=== PATIENT | female | born 1955 | race Caucasian/White ===

== ENCOUNTER 2016-11-14 12:22 | Emergency (ER) | payer BC ==
[2016-11-14] MEDS ORDERED: Ondansetron 4 MG Tab.DIS ONE (12:51)
[2016-11-14 13:15] VITALS: BP 165/85
[2016-11-14] MEDS ORDERED: Ondansetron 4 MG Tab.DIS PO PRN (13:20)
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
--- NOTE | 2016-11-14 17:11 | CT ---
DATE OF SERVICE: 11/14/16 CLINICAL DATA: R/O subdural hematoma UNENHANCED BRAIN CT: Multislice acquisition through the brain without IV contrast was performed. No priors. No masses or mass effect. No intracranial hemorrhage. No evidence of acute or subacute infarct. There are basal ganglia calcifications bilaterally. The most common etiology for these is idiopathic. No osseous abnormalities. IMPRESSION: No acute intracranial abnormalities. [id number] [facility]
== END 2016-11-14 13:39 | disposition home or self-care (01) ==
LOC: LB.ED 12:22
DX: G44.309 Post-traumatic headache, unspecified, not intractable (principal); M19.90 Unspecified osteoarthritis, unspecified site; E11.9 Type 2 diabetes mellitus without complications; E78.00 Pure hypercholesterolemia, unspecified; Z88.0 Allergy status to penicillin; Z88.8 Allergy status to other drugs, medicaments and biological substances; Z79.82 Long term (current) use of aspirin; Z79.84 Long term (current) use of oral hypoglycemic drugs; Z87.891 Personal history of nicotine dependence
CPT/HCPCS: 70450; 82962; 99284-25

== ENCOUNTER 2017-04-15 10:12 | Emergency (ER) | payer BC ==
[2017-04-15 10:38] VITALS: BP 144/65
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
[2017-04-15] MEDS ORDERED: Methocarbamol 750 MG Tab ONE (11:07)
[2017-04-15] MEDS: Methocarbamol 500 MG Tab PO PRN (11:07)
--- NOTE | 2017-04-15 19:14 | CR ---
DATE OF SERVICE: 04/15/17 CLINICAL DATA: neck pain at work CERVICAL SPINE: No priors. Only C1 through C5 are adequately seen. The vertebral bodies visualized are of average height and in good alignment. There is straightening of the normal cervical lordosis. This is most likely positional or due to muscle spasm. There are disc margin spurs with disc space narrowing at the C4-5 and C5-6 levels. There is facet joint hypertrophy throughout the visualized levels. No acute abnormalities. No focal lytic or blastic bone lesions. [id number] [facility]
== END 2017-04-15 11:57 | disposition home or self-care (01) ==
LOC: LB.ED 10:12
DX: M62.838 Other muscle spasm (principal); E78.00 Pure hypercholesterolemia, unspecified; E11.9 Type 2 diabetes mellitus without complications; Z87.891 Personal history of nicotine dependence; Z79.899 Other long term (current) drug therapy; Z79.82 Long term (current) use of aspirin; Z79.84 Long term (current) use of oral hypoglycemic drugs; Z88.0 Allergy status to penicillin; Z88.5 Allergy status to narcotic agent
CPT/HCPCS: 72040; 99283; A0425; A0429; A9270-GY

== ENCOUNTER 2018-04-25 09:51 | Emergency (ER) | payer MEDICAID ==
--- NOTE | 2018-04-25 11:42 | EDM.PDOC ---
ED HPI GENERAL MEDICAL PROBLEM - General Chief Complaint: General Stated Complaint: POSSIBLE STREP Time Seen by Provider: 04/25/18 10:50 Source of Information: Reports: Patient History Limitations: Reports: No Limitations - History of Present Illness INITIAL COMMENTS - FREE TEXT/NARRATIVE: According to patient she woke up today morning and noticed pain some pain in her throat. Claims that since then it hurts for her to swallow fluids or solid food. No fever or chills. No nasal congestion or cold symptoms.No cough, wheezing or shortness of breath. She claims otherwise she feels fine. Onset: Today Onset Date: 04/25/18 Onset Time: 07:00 Duration: Intermittent Location: Reports: Other (throat) Quality: Reports: Ache Severity: Mild Improves with: Reports: None Worsens with: Reports: None Associated Symptoms: Denies: Confusion, Chest Pain, Cough, Diaphoresis, Fever/ Chills, Headaches, Rash, Seizure, Shortness of Breath, Syncope, Weakness - Related Data Allergies Allergy/AdvReac Type Severity Reaction Status Date / Time meperidine HCl [From Demerol] Allergy Confusion Verified 10/11/17 11:11 Penicillins Allergy Cannot Verified 10/11/17 11:11 Remember Home Meds: Home Meds Albuterol [Ventolin HFA] 1 puff INH Q4H PRN 05/29/13 [History] Aspirin [Adult Low Dose Aspirin EC] 81 mg PO DAILY 05/29/13 [History] Ibuprofen 800 mg PO BID PRN 05/29/13 [History] Simvastatin 20 mg PO DAILY 05/29/13 [History] metFORMIN [metFORMIN XR] 500 mg PO BIDM 05/29/13 [History] Montelukast [Singulair] 10 mg PO DAILY 07/26/15 [History] Methocarbamol 750 mg PO TID 10 Days #30 tablet 04/15/17 [Rx] Prednisone [IJD: predniSONE] 20 mg PO WITHBREAKFAST #21 tab 04/15/17 [Rx] Past Medical History 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 Denies: Ear Pain, Rhinitis, Throat Swelling, Vision Change Respiratory: Denies: Shortness of Breath, Pleuritic Chest Pain, Cough, Sputum 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: Denies: Chest Pain, Lightheadedness GI/Abdominal: Denies: Abdominal Pain, Nausea : Denies: Dysuria, Frequency Musculoskeletal: Denies: Joint Pain, Joint Swelling Skin: Denies: Bruising, Pruritis, Rash ED EXAM, GENERAL - Physical Exam Exam: See Below Exam Limited By: No Limitations General Appearance: Alert, WD/WN, No Apparent Distress Eye Exam: Bilateral Eye: EOMI, PERRL Ears: Normal External Exam, Normal Canal, Hearing Grossly Normal, Normal TMs Ear Exam: Bilateral Ear: Auricle Normal, Canal Normal, TM normal Nose: Normal Inspection, Normal Mucosa, No Blood Throat/Mouth: Normal Inspection, Normal Lips, Normal Teeth, Normal Gums, Normal Oropharynx, Normal Voice, No Airway Compromise Head: Atraumatic, Normocephalic Neck: Normal Inspection, Supple, Non-Tender, Full Range of Motion Respiratory/Chest: No Respiratory Distress, Lungs Clear, Normal Breath Sounds, No Accessory Muscle Use, Chest Non-Tender 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: Normal Peripheral Pulses, Regular Rate, Rhythm, No Edema, No Gallop, No JVD, No Murmur, No Rub Neurological: Alert, Oriented Skin Exam: Warm, Intact Course - Vital Signs Last Recorded V/S: Pt's vitals and clinical exam appears normal. I do not see any congestion of the posterior pharynx. CBC appears normal. Her strep test is negative.Pt reassured the she probably has early viral pharyngitis. Advised salt water gargles 2-3 times daily, motrin 600mg 3 times daily with food. rest and hydration. If symptoms worsen should followup in clinic next week. - Orders/Labs/Meds Labs: Laboratory Tests 04/25/18 Range/Units 10:30 WBC 8.0 D (4.0-11.0) K/uL RBC 4.33 (3.80-5.80) M/uL Hgb 12.5 (11.5-16.5) g/dL Hct 37.4 (37.0-47.0) % MCV 86 (76-96) fL MCH 28.9 (27.0-32.0) pg MCHC 33.4 (31.0-35.0) g/dL RDW 12.6 (11.0-16.0) % Plt Count 165 (150-500) K/uL MPV 10.7 H (6.0-10.0) fL Neut % (Auto) 62.0 (45.0-70.0) % Lymph % (Auto) 16.7 L (20.0-40.0) % Eddy % (Auto) 19.9 H (3.0-10.0) % Eos % (Auto) 1.0 (1.0-5.0) % Baso % (Auto) 0.4 (0.0-0.5) % Neut # (Auto) 4.97 (2.00-7.50) K/uL Lymph # (Auto) 1.34 L (1.50-4.00) K/uL Eddy # (Auto) 1.59 H (0.20-0.80) K/uL Eos # (Auto) 0.08 (0.04-0.40) K/uL Baso # (Auto) 0.03 (0.02-0.10) K/uL Departure - Departure Time of Disposition: 11:20 Disposition: Home, Self-Care 01 Condition: Fair Clinical Impression: Viral pharyngitis - Discharge Information *PRESCRIPTION DRUG MONITORING PROGRAM REVIEWED*: Not Applicable *COPY OF PRESCRIPTION DRUG MONITORING REPORT IN PATIENT EMERSON: Not Applicable Instructions: Pharyngitis, [id number] Referrals: PCP,None [Primary Care Provider] - Forms: ED Department Discharge Care Plan Goals: Drink plenty of fluids, get plenty of rest, may take tylenlol as needed for fever or pain. May gargle with warm salt water. Return to hospital or clinic if symptoms worsen. - Problem List & Annotations (1) Viral pharyngitis SNOMED Code(s): 1551952 Code(s): J02.9 - ACUTE PHARYNGITIS, UNSPECIFIED Status: Acute Current Visit: Yes
[2018-04-25 12:09] VITALS: BP 155/82
== END 2018-04-25 11:20 | disposition home or self-care (01) ==
LOC: LB.ED 09:51
DX: J02.9 Acute pharyngitis, unspecified (principal); E11.9 Type 2 diabetes mellitus without complications; Z88.0 Allergy status to penicillin; Z88.8 Allergy status to other drugs, medicaments and biological substances
CPT/HCPCS: 36415; 85025; 87430; 99283

== ENCOUNTER 2018-08-04 09:04 | Emergency (ER) | payer MEDICAID, MEDICARE ==
[2018-08-04] MEDS ORDERED: Aspirin 81 MG Tab.Chew ONE (09:15)
[2018-08-04] MEDS ORDERED: Ketorolac 30 MG/ML SDV ONE (09:58)
--- NOTE | 2018-08-04 10:02 | CR ---
DATE OF SERVICE: 08/04/18 CLINICAL DATA: chest pressure AP PORTABLE CHEST: Comparison is made to a prior exam dated 05/19/16. The film is underpenetrated. The patient has taken a poor inspiration. The heart size is normal. The lungs are clear. No pneumothorax. No pleural effusions. No evidence of acute intrathoracic disease. [id number] [facility]
[2018-08-04] MEDS ORDERED: Ketorolac 30 MG/ML SDV IVPUSH ONE (10:04)
--- NOTE | 2018-08-04 10:15 | EDM.PDOC ---
ED HPI GENERAL MEDICAL PROBLEM - General Chief Complaint: General Stated Complaint: CHEST PAIN Time Seen by Provider: 08/04/18 09:09 Source of Information: Reports: Patient History Limitations: Reports: No Limitations - History of Present Illness INITIAL COMMENTS - FREE TEXT/NARRATIVE: This is a 63yo F here for 3-5 days of chest pressure and pain. Patient states it radiates to her left arm sometimes. She denies any shortness of breath but does notice increased pain at times with deep breaths. She denies lightheadedness or fever. She has a good appetite and drinking well. No issues with urination or BMs. Duration: Day(s): Location: Reports: Chest Quality: Reports: Ache Severity: Moderate Improves with: Reports: None Worsens with: Reports: Movement Left Chest Pain Score (Numeric/FACES): 6 - Related Data Allergies Allergy/AdvReac Type Severity Reaction Status Date / Time meperidine HCl [From Demerol] Allergy Confusion Verified 10/11/17 11:11 Penicillins Allergy Cannot Verified 10/11/17 11:11 Remember Home Meds: Home Meds Albuterol [Ventolin HFA] 1 puff INH Q4H PRN 05/29/13 [History] Aspirin [Adult Low Dose Aspirin EC] 81 mg PO DAILY 05/29/13 [History] Ibuprofen 800 mg PO BID PRN 05/29/13 [History] Simvastatin 20 mg PO DAILY 05/29/13 [History] metFORMIN [metFORMIN XR] 500 mg PO BIDM 05/29/13 [History] Montelukast [Singulair] 10 mg PO DAILY 07/26/15 [History] Methocarbamol 750 mg PO TID 10 Days #30 tablet 04/15/17 [Rx] Prednisone [IJD: predniSONE] 20 mg PO WITHBREAKFAST #21 tab 04/15/17 [Rx] Past Medical History 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 History: 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 Cholesterol Respiratory History: Reports: Asthma [employer] History: Reports: Musculoskeletal History: Reports: Osteoarthritis Neurological History: Reports: Migraines Psychiatric History: Reports: Other (See Below) Other Psychiatric History: stress Endocrine/Metabolic History: Reports: Diabetes, Type II - Past Surgical History GI Surgical History: Reports: Other (See Below) Female Surgical History: Reports: Hysterectomy Musculoskeletal Surgical History: Reports: Other (See Below) Social & Family History - Family History Family Medical History: Noncontributory - Tobacco Use Smoking Status *Q: Never Smoker Second Hand Smoke Exposure: No - Caffeine Use Caffeine Use: Reports: Coffee - Recreational Drug Use Recreational Drug Use: No ED ROS GENERAL - Review of Systems Review Of Systems: ROS reveals no pertinent complaints other than HPI. ED EXAM, GENERAL - Physical Exam Exam: See Below Exam Limited By: No Limitations General Appearance: Alert, WD/WN, Mild Distress Eye Exam: Bilateral Eye: EOMI, PERRL Ears: Normal External Exam Nose: Normal Inspection Throat/Mouth: Normal Inspection, Normal Lips Head: Atraumatic, Normocephalic Neck: Normal Inspection, Supple, Non-Tender Respiratory/Chest: No Respiratory Distress, Lungs Clear, Normal Breath Sounds, No Accessory Muscle Use, Other (pain on pressure and palpation of left chest wall) 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: Normal Peripheral Pulses, Regular Rate, Rhythm, No Edema Peripheral Pulses: 2+: Dorsalis Pedis (L), Dorsalis Pedis (R) GI/Abdominal: Normal Bowel Sounds Back Exam: Normal Inspection Extremities: Normal Inspection, No Pedal Edema Neurological: Alert, Oriented, CN II-XII Intact Course - Vital Signs Last Recorded V/S: Last Vital Signs Temp 37.0 C 08/04/18 09:38 Pulse 69 08/04/18 10:00 Resp 20 08/04/18 10:00 BP 166/66 H 08/04/18 10:00 Pulse Ox 95 08/04/18 10:00 - Orders/Labs/Meds Orders: Active Orders 24 hr Category Date Time Status EKG Documentation Completion [RC] ASDIRECTED Care 08/04/18 09:07 Active Labs: Laboratory Tests 08/04/18 08/04/18 08/04/18 Range/Units 09:20 09:20 09:20 WBC 6.3 D (4.0-11.0) K/uL RBC 3.97 (3.80-5.80) M/uL Hgb 11.6 (11.5-16.5) g/dL Hct 35.2 L (37.0-47.0) % MCV 89 (76-96) fL MCH 29.2 (27.0-32.0) pg MCHC 33.0 (31.0-35.0) g/dL RDW 12.7 (11.0-16.0) % Plt Count 216 D (150-500) K/uL MPV 9.6 (6.0-10.0) fL Neut % (Auto) 62.1 (45.0-70.0) % Lymph % (Auto) 24.0 (20.0-40.0) % [place] % (Auto) 12.3 H (3.0-10.0) % Eos % (Auto) 1.1 (1.0-5.0) % Baso % (Auto) 0.5 (0.0-0.5) % Neut # (Auto) 3.88 (2.00-7.50) K/uL Lymph # (Auto) 1.50 (1.50-4.00) K/uL [place] # (Auto) 0.77 (0.20-0.80) K/uL Eos # (Auto) 0.07 (0.04-0.40) K/uL Baso # (Auto) 0.03 (0.02-0.10) K/uL PT 9.6 (9.0-11.5) sec INR 1.0 (1.0-3.5) Sodium 139 (136-145) mmol/L Potassium 4.1 (3.5-5.1) mmol/L Chloride 101 (98-107) mmol/L Carbon Dioxide 27.9 (21.0-32.0) mmol/L Anion Gap 14.2 (5.0-15.0) mmol/L BUN 10 D (8-26) mg/dL Creatinine 0.78 (0.55-1.02) mg/dL Est Cr Clr Drug Dosing 51.65 mL/min Estimated GFR (MDRD) > 60 (>60) MLS/MIN BUN/Creatinine Ratio 12.8 (6-25) Glucose 148 H (74-100) mg/dL Calcium 9.0 (8.5-10.1) mg/dL Total Bilirubin 0.6 (0.0-1.0) mg/dL AST 17 (15-37) U/L ALT 23 (12-78) U/L Alkaline Phosphatase 42 L (46-116) U/L Troponin I < 0.017 D (0.000-0.060) ng/mL B-Natriuretic Peptide 155 H D (0-125) pg/mL Total Protein 7.8 (6.4-8.2) g/dL Albumin 3.8 (3.4-5.0) g/dL Globulin 4.0 (2.2-4.2) g/dL Albumin/Globulin Ratio 0.9 (0.8-2.0) TSH, Ultra Sensitive 3.559 (0.358-3.740) uIU/mL Urine Color Urine Appearance (CLEAR) Urine pH (5.0-8.0) Ur Specific [place] (1.003-1.030) Urine Protein (NEGATIVE) mg/dL Urine Glucose (UA) (NEGATIVE) mg/dL Urine Ketones (NEGATIVE) mg/dL Urine Occult Blood (NEGATIVE) Urine Nitrite (NEGATIVE) Urine Bilirubin (NEGATIVE) Urine Urobilinogen (0.2-1.0) E.U./dL Ur Leukocyte Esterase (NEGATIVE) 08/04/18 Range/Units 09:20 WBC (4.0-11.0) K/uL RBC (3.80-5.80) M/uL Hgb (11.5-16.5) g/dL Hct (37.0-47.0) % MCV (76-96) fL MCH (27.0-32.0) pg MCHC (31.0-35.0) g/dL RDW (11.0-16.0) % Plt Count (150-500) K/uL MPV (6.0-10.0) fL Neut % (Auto) (45.0-70.0) % Lymph % (Auto) (20.0-40.0) % [place] % (Auto) (3.0-10.0) % Eos % (Auto) (1.0-5.0) % Baso % (Auto) (0.0-0.5) % Neut # (Auto) (2.00-7.50) K/uL Lymph # (Auto) (1.50-4.00) K/uL [place] # (Auto) (0.20-0.80) K/uL Eos # (Auto) (0.04-0.40) K/uL Baso # (Auto) (0.02-0.10) K/uL PT (9.0-11.5) sec INR (1.0-3.5) Sodium (136-145) mmol/L Potassium (3.5-5.1) mmol/L Chloride (98-107) mmol/L Carbon Dioxide (21.0-32.0) mmol/L Anion Gap (5.0-15.0) mmol/L BUN (8-26) mg/dL Creatinine (0.55-1.02) mg/dL Est Cr Clr Drug Dosing mL/min Estimated GFR (MDRD) (>60) MLS/MIN BUN/Creatinine Ratio (6-25) Glucose (74-100) mg/dL Calcium (8.5-10.1) mg/dL Total Bilirubin (0.0-1.0) mg/dL AST (15-37) U/L ALT (12-78) U/L Alkaline Phosphatase (46-116) U/L Troponin I (0.000-0.060) ng/mL B-Natriuretic Peptide (0-125) pg/mL Total Protein (6.4-8.2) g/dL Albumin (3.4-5.0) g/dL Globulin (2.2-4.2) g/dL Albumin/Globulin Ratio (0.8-2.0) TSH, Ultra Sensitive (0.358-3.740) uIU/mL Urine Color Yellow Urine Appearance Clear (CLEAR) Urine pH 7.0 (5.0-8.0) Ur Specific [place] 1.010 (1.003-1.030) Urine Protein Negative (NEGATIVE) mg/dL Urine Glucose (UA) Negative (NEGATIVE) mg/dL Urine Ketones Negative (NEGATIVE) mg/dL Urine Occult Blood Negative (NEGATIVE) Urine Nitrite Negative (NEGATIVE) Urine Bilirubin Negative (NEGATIVE) Urine Urobilinogen 0.2 (0.2-1.0) E.U./dL Ur Leukocyte Esterase Negative (NEGATIVE) Meds: Medications Discontinued Medications Generic Name Dose Route Start Last Admin Trade Name Freq PRN Reason Stop Dose Admin Ketorolac Tromethamine Confirm 08/04/18 09:58 08/04/18 10:07 Toradol Administered 08/04/18 09:59 Not Given Dose 30 mg .ROUTE .STK-MED ONE Ketorolac Tromethamine 30 mg 08/04/18 10:04 08/04/18 09:55 Toradol IVPUSH 08/04/18 10:05 30 mg ONETIME ONE Administration Departure - Departure Time of Disposition: 10:14 Disposition: Home, Self-Care 01 Condition: Good Clinical Impression: Chest wall muscle strain Qualifiers: Encounter type: initial encounter Qualified Code(s): S29.011A - Strain of muscle and tendon of front wall of thorax, initial encounter - Discharge Information Instructions: Pleurisy, [id number] Referrals: PCP,None [Primary Care Provider] - Forms: ED Department Discharge Additional Instructions: Discharge home. Diet: As tolerated Activity: Rest Medications: Warm packs - Problem List & Annotations (1) Chest wall muscle strain SNOMED Code(s): 354791402 Code(s): S29.011A - STRAIN OF MUSCLE AND TENDON OF FRONT WALL OF THORAX, INIT Status: Acute Priority: High Current Visit: Yes Qualifiers: Encounter type: initial encounter Qualified Code(s): S29.011A - Strain of muscle and tendon of front wall of thorax, initial encounter - Problem List Review Problem List Initiated/Reviewed/Updated: Yes - My Orders Last 24 Hours: My Active Orders 08/04/18 09:07 EKG Documentation Completion [RC] ASDIRECTED - Assessment/Plan Last 24 Hours: My Active Orders 08/04/18 09:07 EKG Documentation Completion [RC] ASDIRECTED Plan: Counseled on chest wall strain and supportive care. Discussed use of toradol and f/u in clinic as needed if symptoms persist or worsen. F/u with PCP as routine.
[2018-08-04 10:41] VITALS: BP 137/69
== END 2018-08-04 10:25 | disposition home or self-care (01) ==
LOC: LB.ED 09:04
DX: S29.011A Strain of muscle and tendon of front wall of thorax, initial encounter (principal); E11.9 Type 2 diabetes mellitus without complications; E78.00 Pure hypercholesterolemia, unspecified; Z79.82 Long term (current) use of aspirin; Z79.84 Long term (current) use of oral hypoglycemic drugs; Z79.899 Other long term (current) drug therapy; Z88.0 Allergy status to penicillin; Z88.5 Allergy status to narcotic agent; X58.XXXA Exposure to other specified factors, initial encounter
CPT/HCPCS: 36415; 71045; 80053; 81003; 83880; 84443; 84484; 85025; 85610; 93005; 96374; 99283; 99285-25; A9270-GY; J1885

== ENCOUNTER 2020-10-29 17:50 | Emergency (ER) | payer MEDICARE, MEDICAID ==
[2020-10-29] MEDS ORDERED: Nitroglycerin 0.4 MG Tab.SL SL PRN (18:08)
[2020-10-29] MEDS ORDERED: Aspirin 325 MG Tab.EC PO ONE (18:25)
[2020-10-29] MEDS ORDERED: Nitroglycerin 0.4 MG Tab.SL ONE (18:27)
[2020-10-29] MEDS ORDERED: Sodium Chloride 0.9% 1,000 ML IV ONE (18:34)
[2020-10-29 22:03] VITALS: BP 145/64
[2020-10-29 22:35] VITALS: PULSE 53
--- NOTE | 2020-10-29 23:16 | EDM.PDOC ---
ED HPI GENERAL MEDICAL PROBLEM - General Chief Complaint: Headache Stated Complaint: HEADACHE Time Seen by Provider: 10/29/20 18:05 - History of Present Illness INITIAL COMMENTS - FREE TEXT/NARRATIVE: Patient comes to the ER with a grandson stating that she does not feel well. She had a headache since this morning when she woke up she tells me she has a little numbness on both sides of her face at times in her left arm does not feel right. She denies any problems with falls or injuries, or chest pain, shortness of breath, nausea or vomiting. The patient states she does have some history of headaches but usually not this bad. She can move her arms and legs freely at this time. - Related Data Allergies Allergy/AdvReac Type Severity Reaction Status Date / Time meperidine HCl [From Demerol] Allergy Confusion Verified 10/29/20 18:46 Penicillins Allergy Cannot Verified 10/29/20 18:46 Remember Home Meds: Home Meds Albuterol [Ventolin HFA] 1 puff INH Q4H PRN 05/29/13 [History] Aspirin [Adult Low Dose Aspirin EC] 81 mg PO DAILY 05/29/13 [History] Ibuprofen 800 mg PO BID PRN 05/29/13 [History] Simvastatin 20 mg PO DAILY 05/29/13 [History] metFORMIN [metFORMIN XR] 500 mg PO DAILY 05/29/13 [History] Montelukast [Singulair] 10 mg PO DAILY 07/26/15 [History] Escitalopram [Lexapro] 10 mg PO DAILY 10/29/20 [History] Past Medical History 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 History: 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 Cholesterol Respiratory History: Reports: Asthma [employer] History: Reports: Musculoskeletal History: Reports: Osteoarthritis Neurological History: Reports: Migraines Psychiatric History: Reports: Other (See Below) Other Psychiatric History: stress Endocrine/Metabolic History: Reports: Diabetes, Type II - Past Surgical History GI Surgical History: Reports: Other (See Below) Other GI Surgeries/Procedures: removal of a cyst on the rectum Female Surgical History: Reports: Hysterectomy Musculoskeletal Surgical History: Reports: Other (See Below) Other Musculoskeletal Surgeries/Procedures:: rotator cuff repair Social & Family History - Family History Family Medical History: No Pertinent Family History - Caffeine Use Caffeine Use: Reports: Coffee - Recreational Drug Use Recreational Drug Use: No ED ROS GENERAL - Review of Systems Review Of Systems: Comprehensive ROS is negative, except as noted in HPI. Neurological: Reports: Headache (left arm discomfort.), Numbness (on both cheeks at times.) ED EXAM, GENERAL - Physical Exam Exam: See Below Free Text/Narrative:: Physical exam objective General appearance patient is awake and alert she is talkative no respiratory distress. Vital signs are reviewed initially her blood pressure significantly high in the 190s to 200 over low 90s to over 100 diastolic. She is afebrile. Physical exam pupils equal round reactive to light EOMs are intact. Cranial nerves II through XII are intact. Oral mucous membranes are slightly dry. Neck is supple, lungs are clear with good air exchange, cardiac heart sounds distinct S1-S2 present no murmurs. Abdomen soft and nontender bowel sounds are present. Skin is warm and dry with no lower extremity edema noted. #1 Interpretation EKG Date: 10/29/20 Course - Vital Signs Last Recorded V/S: Last Vital Signs Temp 97 F 10/29/20 18:24 Pulse 53 L 10/29/20 22:34 Resp 20 10/29/20 22:34 BP 145/64 H 10/29/20 22:34 Pulse Ox 98 10/29/20 19:02 - Orders/Labs/Meds Orders: Active Orders 24 hr Category Date Time Status Head wo Cont [CT] Stat Exams 10/29/20 18:09 Taken Nitroglycerin [Nitrostat] Med 10/29/20 18:08 Active 0.4 mg SL Q5M PRN Medication Orders Nitroglycerin (Nitroglycerin 0.4 Mg Tab.Sl) 0.4 mg SL Q5M PRN PRN Reason: Chest Pain Last Admin: 10/29/20 18:27 Dose: 0.4 mg Documented by: RACHEAL Labs: Laboratory Tests 10/29/20 10/29/20 10/29/20 Range/Units 18:30 18:30 18:30 WBC 4.7 (4.0-11.0) K/uL RBC 3.78 L (3.80-5.80) M/uL Hgb 11.2 L (11.5-16.5) g/dL Hct 33.6 L (37.0-47.0) % MCV 89 (76-96) fL MCH 29.6 (27.0-32.0) pg MCHC 33.3 (31.0-35.0) g/dL RDW 12.4 (11.0-16.0) % Plt Count 208 (150-500) K/uL MPV 9.7 (6.0-10.0) fL Neut % (Auto) 45.3 (45.0-70.0) % Lymph % (Auto) 38.0 (20.0-40.0) % [place] % (Auto) 12.0 H (3.0-10.0) % Eos % (Auto) 3.6 (1.0-5.0) % Baso % (Auto) 1.1 H (0.0-0.5) % Neut # (Auto) 2.12 (2.00-7.50) K/uL Lymph # (Auto) 1.78 (1.50-4.00) K/uL [place] # (Auto) 0.56 (0.20-0.80) K/uL Eos # (Auto) 0.17 (0.04-0.40) K/uL Baso # (Auto) 0.05 (0.02-0.10) K/uL PT 9.9 (9.0-11.5) sec INR 1.0 (1.0-3.5) Sodium 138 (136-145) mmol/L Potassium 3.8 (3.5-5.1) mmol/L Chloride 107 (98-107) mmol/L Carbon Dioxide 28.3 (21.0-32.0) mmol/L Anion Gap 6.5 (5.0-15.0) mmol/L BUN 13 (8-26) mg/dL Creatinine 0.78 (0.55-1.02) mg/dL Est Cr Clr Drug Dosing TNP Estimated GFR (MDRD) > 60 (>60) MLS/MIN BUN/Creatinine Ratio 16.7 (6-25) Glucose 165 H (74-100) mg/dL Calcium 8.7 (8.5-10.1) mg/dL Total Bilirubin 0.3 D (0.0-1.0) mg/dL AST 19 (15-37) U/L ALT 24 (12-78) U/L Alkaline Phosphatase 50 (46-116) U/L Troponin I < 0.017 (0.000-0.060) ng/mL Total Protein 6.7 (6.4-8.2) g/dL Albumin 3.4 (3.4-5.0) g/dL Globulin 3.3 (2.2-4.2) g/dL Albumin/Globulin Ratio 1.0 (0.8-2.0) 10/29/20 Range/Units 22:25 WBC (4.0-11.0) K/uL RBC (3.80-5.80) M/uL Hgb (11.5-16.5) g/dL Hct (37.0-47.0) % MCV (76-96) fL MCH (27.0-32.0) pg MCHC (31.0-35.0) g/dL RDW (11.0-16.0) % Plt Count (150-500) K/uL MPV (6.0-10.0) fL Neut % (Auto) (45.0-70.0) % Lymph % (Auto) (20.0-40.0) % [place] % (Auto) (3.0-10.0) % Eos % (Auto) (1.0-5.0) % Baso % (Auto) (0.0-0.5) % Neut # (Auto) (2.00-7.50) K/uL Lymph # (Auto) (1.50-4.00) K/uL [place] # (Auto) (0.20-0.80) K/uL Eos # (Auto) (0.04-0.40) K/uL Baso # (Auto) (0.02-0.10) K/uL PT (9.0-11.5) sec INR (1.0-3.5) Sodium (136-145) mmol/L Potassium (3.5-5.1) mmol/L Chloride (98-107) mmol/L Carbon Dioxide (21.0-32.0) mmol/L Anion Gap (5.0-15.0) mmol/L BUN (8-26) mg/dL Creatinine (0.55-1.02) mg/dL Est Cr Clr Drug Dosing Estimated GFR (MDRD) (>60) MLS/MIN BUN/Creatinine Ratio (6-25) Glucose (74-100) mg/dL Calcium (8.5-10.1) mg/dL Total Bilirubin (0.0-1.0) mg/dL AST (15-37) U/L ALT (12-78) U/L Alkaline Phosphatase (46-116) U/L Troponin I < 0.017 (0.000-0.060) ng/mL Total Protein (6.4-8.2) g/dL Albumin (3.4-5.0) g/dL Globulin (2.2-4.2) g/dL Albumin/Globulin Ratio (0.8-2.0) Meds: Medications Generic Name Dose Route Start Last Admin Trade Name Freq PRN Reason Stop Dose Admin Nitroglycerin 0.4 mg 10/29/20 18:08 10/29/20 18:27 Nitroglycerin 0.4 Mg Tab.Sl SL 0.4 mg Q5M PRN Administration Chest Pain Discontinued Medications Generic Name Dose Route Start Last Admin Trade Name Freq PRN Reason Stop Dose Admin Aspirin 325 mg 10/29/20 18:25 10/29/20 18:28 Aspirin 325 Mg Tab.Ec PO 10/29/20 18:26 325 mg ONETIME ONE Administration Sodium Chloride 1,000 mls @ 500 mls/hr 10/29/20 18:34 10/29/20 18:42 Normal Saline IV 10/29/20 20:33 500 mls/hr .BOLUS ONE Administration - Re-Assessments/Exams Free Text/Narrative Re-Assessment/Exam: 10/29/20 23:14 Patient was given 4 baby aspirin and 1 nitro tablet which resolved her headache almost completely and her left arm symptoms totally resolved as well. She was given a fluid bolus of 500 mL, and states that she is feeling much better. Lab work is reviewed troponin is negative EKG is shows normal sinus rhythm. Other lab results are unremarkable or normal. At this point we monitored the patient and repeated the troponin after 4 hours which is again negative or normal. The patient has done well during this timeframe with very little complaints of any discomfort. She will be discharged home and activity should be as tolerated. She is concerned that she increased her losartan and this is when the symptoms started from 2012.5 to 25 mg. I advised the patient to go back to the previous dose of 12.5 mg and see how it goes. She is to follow-up in the clinic or over the next 2 to 3 days for recheck. Departure - Departure Time of Disposition: 23:10 Disposition: Home, Self-Care 01 Condition: Good Clinical Impression: Headache Qualifiers: Headache type: unspecified Headache chronicity pattern: acute headache Intractability: intractable Qualified Code(s): R51.9 - Headache, unspecified - Discharge Information *PRESCRIPTION DRUG MONITORING PROGRAM REVIEWED*: Not Applicable *COPY OF PRESCRIPTION DRUG MONITORING REPORT IN PATIENT EMERSON: Not Applicable Instructions: General Headache Without Cause, [id number] Referrals: PCP,None [Primary Care Provider] - Forms: ED Department Discharge Additional Instructions: Discharge home. Tylenol and Ibuprofen alternating for headache/pain. Continue taking half tab of Losartan. Follow up in the clinic in the next couple days. Sepsis Event Note (ED) - Evaluation Sepsis Screening Result: No Definite Risk - Focused Exam Vital Signs: Vital Signs Temp Pulse Resp BP BP Pulse Ox 10/29/20 22:34 53 L 20 145/64 H 10/29/20 22:02 57 L 18 145/64 H 10/29/20 21:45 63 13 147/54 H 10/29/20 21:11 58 L 17 147/59 H 10/29/20 20:39 64 16 144/60 H 10/29/20 20:11 63 16 134/55 L 10/29/20 19:50 57 L 16 148/58 H 10/29/20 19:12 63 18 135/60 10/29/20 19:02 61 18 135/60 98 10/29/20 18:46 58 L 143/68 H 10/29/20 18:40 69 16 129/61 22 L 10/29/20 18:31 137/95 H 10/29/20 18:27 200/88 H 10/29/20 18:24 97 F 67 16 184/143 H 98 - My Orders Last 24 Hours: My Active Orders 10/29/20 18:08 Nitroglycerin [Nitrostat] 0.4 mg SL Q5M PRN 10/29/20 18:09 Head wo Cont [CT] Stat - Assessment/Plan Last 24 Hours: My Active Orders 10/29/20 18:08 Nitroglycerin [Nitrostat] 0.4 mg SL Q5M PRN 10/29/20 18:09 Head wo Cont [CT] Stat
--- NOTE | 2020-10-30 08:48 | CT ---
Date of Service: 10/29/20 Clinical Data: H/A with facial tingling and left arm discomfort. UNENHANCED BRAIN CT: Multislice axial acquisition was performed. Comparison was made to a prior exam dated 11/14/16. There are periventricular lucencies bilaterally consistent with small vessel ischemic change. No masses or mass effect. No intracranial hemorrhage. No evidence of acute or subacute infarct. No osseous abnormalities. IMPRESSION: No acute intracranial abnormalities. [id number] [facility]
== END 2020-10-29 23:10 | disposition home or self-care (01) ==
LOC: LB.ED 17:50
DX: R51.9 Headache, unspecified (principal); J45.909 Unspecified asthma, uncomplicated; E78.00 Pure hypercholesterolemia, unspecified; E11.9 Type 2 diabetes mellitus without complications; Z88.0 Allergy status to penicillin; Z88.8 Allergy status to other drugs, medicaments and biological substances; Z79.82 Long term (current) use of aspirin; Z79.84 Long term (current) use of oral hypoglycemic drugs; Z79.899 Other long term (current) drug therapy
CPT/HCPCS: 36415; 70450; 80053; 84484; 85025; 85610; 93005; 99284; A9270; J7030; 99283

== ENCOUNTER 2021-02-24 08:35 | Emergency (ER) | payer MEDICARE, MEDICAID ==
[2021-02-24] MEDS: Bamlanivimab 700 MG, ETESEVIMAB 1,400 MG in Sodium Chloride 0.9% 100 ML IV ONE (09:55)
[2021-02-24 10:28] VITALS: BP 130/64; PULSE 75
--- NOTE | 2021-02-24 11:52 | EDM.PDOC ---
ED HPI GENERAL MEDICAL PROBLEM - General Chief Complaint: Respiratory Problem Stated Complaint: cold symptoms Time Seen by Provider: 02/24/21 08:55 - History of Present Illness INITIAL COMMENTS - FREE TEXT/NARRATIVE: Pt is here with C/O not feeling well for 4-5 days. She has been coughing with SOB at times and weakness. Cough has been mostly dry. She also has a rash under her left breast that has been there for weeks. - Related Data Allergies Allergy/AdvReac Type Severity Reaction Status Date / Time meperidine HCl [From Demerol] Allergy Confusion Verified 10/29/20 18:46 Penicillins Allergy Cannot Verified 10/29/20 18:46 Remember Home Meds: Home Meds Albuterol [Ventolin HFA] 1 puff INH Q4H PRN 05/29/13 [History] Aspirin [Adult Low Dose Aspirin EC] 81 mg PO DAILY 05/29/13 [History] Ibuprofen 800 mg PO BID PRN 05/29/13 [History] Simvastatin 20 mg PO DAILY 05/29/13 [History] metFORMIN [metFORMIN XR] 500 mg PO DAILY 05/29/13 [History] Montelukast [Singulair] 10 mg PO DAILY 07/26/15 [History] Escitalopram [Lexapro] 10 mg PO DAILY 10/29/20 [History] Losartan [Cozaar] 12.5 mg PO DAILY 02/24/21 [History] Past Medical History 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 History: 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 Cholesterol Respiratory History: Reports: Asthma [employer] History: Reports: Musculoskeletal History: Reports: Osteoarthritis Neurological History: Reports: Migraines Psychiatric History: Reports: Other (See Below) Other Psychiatric History: stress Endocrine/Metabolic History: Reports: Diabetes, Type II - Past Surgical History GI Surgical History: Reports: Other (See Below) Other GI Surgeries/Procedures: removal of a cyst on the rectum Female Surgical History: Reports: Hysterectomy Musculoskeletal Surgical History: Reports: Other (See Below) Other Musculoskeletal Surgeries/Procedures:: rotator cuff repair Social & Family History - Family History Family Medical History: No Pertinent Family History - Caffeine Use Caffeine Use: Reports: Soda ED ROS GENERAL - Review of Systems Review Of Systems: Comprehensive ROS is negative, except as noted in HPI. Respiratory: Reports: Shortness of Breath, Cough Skin: Reports: Rash (under left breast.) ED EXAM, GENERAL - Physical Exam Exam: See Below Respiratory/Chest: Other (slightly reduced are exchange throughout.) Skin Exam: Other (she has a red slightly raised rash below her left breast in the crease, consistent with Tinea.) Course - Vital Signs Last Recorded V/S: Last Vital Signs Temp 98 F 02/24/21 10:27 Pulse 75 02/24/21 10:27 Resp 18 02/24/21 10:27 BP 130/64 02/24/21 10:27 Pulse Ox 94 L 02/24/21 10:27 - Orders/Labs/Meds Orders: Active Orders 24 hr Category Date Time Status Chest 1V Frontal [CR] Stat Exams 02/24/21 08:47 Taken Labs: Laboratory Tests 02/24/21 02/24/21 02/24/21 Range/Units 08:46 08:46 09:00 WBC 3.2 L D (4.0-11.0) K/uL RBC 4.49 (3.80-5.80) M/uL Hgb 13.1 (11.5-16.5) g/dL Hct 40.1 (37.0-47.0) % MCV 89 (76-96) fL MCH 29.2 (27.0-32.0) pg MCHC 32.7 (31.0-35.0) g/dL RDW 12.7 (11.0-16.0) % Plt Count 202 D (150-500) K/uL MPV 10.2 H (6.0-10.0) fL Neut % (Auto) 48.1 (45.0-70.0) % Lymph % (Auto) 33.6 (20.0-40.0) % [place] % (Auto) 17.1 H (3.0-10.0) % Eos % (Auto) 0.9 L (1.0-5.0) % Baso % (Auto) 0.3 (0.0-0.5) % Neut # (Auto) 1.54 L (2.00-7.50) K/uL Lymph # (Auto) 1.08 L (1.50-4.00) K/uL [place] # (Auto) 0.55 (0.20-0.80) K/uL Eos # (Auto) 0.03 L (0.04-0.40) K/uL Baso # (Auto) 0.01 L (0.02-0.10) K/uL Sodium 141 (136-145) mmol/L Potassium 3.9 (3.5-5.1) mmol/L Chloride 105 (98-107) mmol/L Carbon Dioxide 28.2 (21.0-32.0) mmol/L Anion Gap 11.7 (5.0-15.0) mmol/L BUN 16 D (8-26) mg/dL Creatinine 0.86 (0.55-1.02) mg/dL Est Cr Clr Drug Dosing TNP Estimated GFR (MDRD) > 60 (>60) MLS/MIN BUN/Creatinine Ratio 18.6 (6-25) Glucose 141 H (74-100) mg/dL Calcium 8.8 (8.5-10.1) mg/dL Total Bilirubin 0.3 (0.0-1.0) mg/dL AST 97 H (15-37) U/L ALT 84 H (12-78) U/L Alkaline Phosphatase 40 L (46-116) U/L Total Protein 7.3 (6.4-8.2) g/dL Albumin 3.8 (3.4-5.0) g/dL Globulin 3.5 (2.2-4.2) g/dL Albumin/Globulin Ratio 1.1 (0.8-2.0) SARS CoV-2 RNA Rapid MARIA ISABEL Positive H Meds: Medications Discontinued Medications Generic Name Dose Route Start Last Admin Trade Name Freq PRN Reason Stop Dose Admin Bamlanivimab 700 mg/ 160 mls @ 310 mls/hr 02/24/21 10:00 02/24/21 09:55 Etesevimab 1,400 mg/ Sodium IV 02/24/21 10:30 310 mls/hr Chloride ONETIME ONE Administration - Re-Assessments/Exams Free Text/Narrative Re-Assessment/Exam: 02/24/21 11:53 Labs show slightly elevated LFT'S. Other lab results and CXR are ok. She was given BAM here per protocol. She will be sent home with a new Albuterol inhaler - hers is empty. Medrol dosepak, and Nystatin for the rash. We discussed monitoring for any worsening of symptoms. Follow up as needed. 02/24/21 11:53 Departure - Departure Time of Disposition: 12:00 Disposition: Home, Self-Care 01 Condition: Good Clinical Impression: COVID-19 determined by clinical diagnostic criteria, Tinea - Discharge Information *PRESCRIPTION DRUG MONITORING PROGRAM REVIEWED*: No *COPY OF PRESCRIPTION DRUG MONITORING REPORT IN PATIENT EMERSON: Yes Instructions: Hypertension, Adult Referrals: PCP,None [Primary Care Provider] - Forms: ED Department Discharge Sepsis Event Note (ED) - Focused Exam Vital Signs: Vital Signs Temp Pulse Resp BP Pulse Ox 02/24/21 10:27 98 F 75 18 130/64 94 L 02/24/21 09:04 97.5 F 86 18 119/63 95 - My Orders Last 24 Hours: My Active Orders 02/24/21 08:47 Chest 1V Frontal [CR] Stat - Assessment/Plan Last 24 Hours: My Active Orders 02/24/21 08:47 Chest 1V Frontal [CR] Stat
[2021-02-24] MEDS ORDERED: Nystatin Topical Powder 15 GM Bottle ONE (12:00)
[2021-02-24] MEDS ORDERED: Albuterol 8 GM Inhaler ONE (12:00)
[2021-02-24] MEDS: methylPREDNISolone Sodium Succinate 125 MG/2 ML SDV IVPUSH ONE (12:26)
--- NOTE | 2021-02-25 09:41 | CR ---
Date of Service: 02/24/21 Clinical Data: cough PORTABLE CHEST: No priors. The heart size is normal. There is calcification of the aortic arch. The lungs are clear. No pneumothorax. No pleural effusions. No evidence of acute intrathoracic disease. [id number] MTDD
== END 2021-02-24 12:45 | disposition home or self-care (01) ==
LOC: LB.ED 08:35
DX: U07.1 COVID-19 (principal); B35.9 Dermatophytosis, unspecified; E78.00 Pure hypercholesterolemia, unspecified; E11.9 Type 2 diabetes mellitus without complications; Z79.899 Other long term (current) drug therapy; Z79.84 Long term (current) use of oral hypoglycemic drugs; Z88.0 Allergy status to penicillin; Z79.82 Long term (current) use of aspirin
CPT/HCPCS: 36415; 71045; 80053; 85025; 96374; 99285; A9270; J2930; M0245; Q0245; U0002

== ENCOUNTER 2022-12-21 15:58 | Emergency (ER) | payer MEDICARE, MEDICAID ==
[2022-12-21 17:08] LABS: BASOPHILS ABSOLUTE AUTO 0.03 K/uL (0.02-0.10); BASOPHILS PERCENT AUTO 0.5 % (0.0-0.5); EOSINOPHILS PERCENT AUTO 1.6 % (1.0-5.0); HEMATOCRIT 36.5 % (37.0-47.0); HEMOGLOBIN 12.3 g/dL (11.5-16.5); LYMPHOCYTES ABSOLUTE AUTO 1.66 K/uL (1.50-4.00); LYMPHOCYTES PERCENT AUTO 27.3 % (20.0-40.0); MEAN CORPUSCULAR HEMOGLOBIN 29.6 pg (27.0-32.0); MEAN CORPUSCULAR HGB CONC 33.7 g/dL (31.0-35.0); MEAN CORPUSCULAR VOLUME 88 fL (76-96); MEAN PLATELET VOLUME 10.3 fL (6.0-10.0); MONOCYTES ABSOLUTE AUTO 0.86 K/uL (0.20-0.80); MONOCYTES PERCENT AUTO 14.1 % (3.0-10.0); NEUTROPHILS ABSOLUTE AUTO 3.43 K/uL (2.00-7.50); NEUTROPHILS PERCENT AUTO 56.5 % (45.0-70.0); PLATELET COUNT,PLT 226 K/uL (150-500); RED BLOOD CELL COUNT 4.15 M/uL (3.80-5.80); RED CELL DISTRIBUTION WIDTH 12.2 % (11.0-16.0); WHITE BLOOD CELL COUNT,WBC 6.1 K/uL (4.0-11.0)
[2022-12-21 17:24] LABS: A/G RATIO 1.1 (0.8-2.0); ALANINE AMINOTRANSFERASE,ALT 38 U/L (12-78); ALBUMIN 3.8 g/dL (3.4-5.0); BILIRUBIN TOTAL 0.4 mg/dL (0.0-1.0); CALCIUM 8.9 mg/dL (8.5-10.1); CHLORIDE,CL 103 mmol/L (98-107); GLUCOSE RANDOM 108 mg/dL (74-100); POTASSIUM,K 3.8 mmol/L (3.5-5.1); PROTEIN TOTAL,TP 7.3 g/dL (6.4-8.2); SODIUM,NA 138 mmol/L (136-145)
[2022-12-21 17:36] LABS: ALKALINE PHOSPHATASE 44 U/L (46-116); ANION GAP 12.3 mmol/L (5.0-15.0); ASPARTATE AMNIOTRANSFERASE,AST 49 U/L (15-37); BLOOD UREA NITROGEN,BUN 9 mg/dL (8-26); BUN/CREATININE RATIO 10.3 (6-25); CARBON DIOXIDE,CO2 26.5 mmol/L (21.0-32.0); CREATININE 0.87 mg/dL (0.55-1.02); EST CRCL DRUG DOSING (CG) 46.05 mL/min; ESTIMATED GFR 72 mL/min (>60)
[2022-12-21 17:39] LABS: C-REACTIVE PROTEIN < 0.5 mg/L (0.0-3.0)
[2022-12-21] MEDS ORDERED: Sodium Chloride 0.9% 10 ML Syringe FLUSH ONE (18:17)
[2022-12-21] MEDS ORDERED: Sodium Chloride 0.9% 50 ML IV ONE (18:17)
[2022-12-21] MEDS ORDERED: Iopamidol 612 MG/ML 100 ML Bottle IV SCH (18:30)
[2022-12-21 19:36] VITALS: BP 123/56; PULSE 66
== END 2022-12-21 19:28 | disposition home or self-care (01) ==
LOC: LB.ED 15:58 → SUPCPDRO 15:58 → LB.ED 19:28
DX: R19.7 Diarrhea, unspecified (principal); J45.909 Unspecified asthma, uncomplicated; E11.9 Type 2 diabetes mellitus without complications; M19.90 Unspecified osteoarthritis, unspecified site; Z79.82 Long term (current) use of aspirin; Z79.84 Long term (current) use of oral hypoglycemic drugs; Z79.899 Other long term (current) drug therapy; Z88.5 Allergy status to narcotic agent; Z88.0 Allergy status to penicillin
CPT/HCPCS: 36415; 74177; 80053; 85025; 86140; 87045; 87046; 87427; 99284; J3490; Q9967

== ENCOUNTER 2022-12-24 16:36 | Emergency (ER) | payer MEDICARE, MEDICAID ==
[2022-12-24 16:52] VITALS: BP 126/63; PULSE 92
[2022-12-24 17:41] LABS: BASOPHILS ABSOLUTE AUTO 0.03 K/uL (0.02-0.10); BASOPHILS PERCENT AUTO 0.4 % (0.0-0.5); EOSINOPHILS ABSOLUTE AUTO 0.08 K/uL (0.04-0.40); EOSINOPHILS PERCENT AUTO 1.1 % (1.0-5.0); HEMATOCRIT 38.1 % (37.0-47.0); HEMOGLOBIN 12.6 g/dL (11.5-16.5); LYMPHOCYTES ABSOLUTE AUTO 1.52 K/uL (1.50-4.00); LYMPHOCYTES PERCENT AUTO 21.5 % (20.0-40.0); MEAN CORPUSCULAR HGB CONC 33.1 g/dL (31.0-35.0); MEAN CORPUSCULAR VOLUME 88 fL (76-96); MEAN PLATELET VOLUME 10.1 fL (6.0-10.0); MONOCYTES ABSOLUTE AUTO 0.73 K/uL (0.20-0.80); MONOCYTES PERCENT AUTO 10.3 % (3.0-10.0); NEUTROPHILS PERCENT AUTO 66.7 % (45.0-70.0); PLATELET COUNT,PLT 225 K/uL (150-500); RED BLOOD CELL COUNT 4.35 M/uL (3.80-5.80); RED CELL DISTRIBUTION WIDTH 12.4 % (11.0-16.0); WHITE BLOOD CELL COUNT,WBC 7.1 K/uL (4.0-11.0)
[2022-12-24 17:53] LABS: A/G RATIO 1.1 (0.8-2.0); ALBUMIN 3.8 g/dL (3.4-5.0); ANION GAP 14.2 mmol/L (5.0-15.0); BILIRUBIN TOTAL 0.4 mg/dL (0.0-1.0); BUN/CREATININE RATIO 23.1 (6-25); CALCIUM 9.3 mg/dL (8.5-10.1); CARBON DIOXIDE,CO2 24.7 mmol/L (21.0-32.0); CREATININE 0.78 mg/dL (0.55-1.02); EST CRCL DRUG DOSING (CG) 48.89 mL/min; POTASSIUM,K 3.9 mmol/L (3.5-5.1); PROTEIN TOTAL,TP 7.3 g/dL (6.4-8.2)
== END 2022-12-24 18:05 | disposition home or self-care (01) ==
LOC: LB.ED 16:36
DX: R19.7 Diarrhea, unspecified (principal); I11.0 Hypertensive heart disease with heart failure; I50.9 Heart failure, unspecified; E78.00 Pure hypercholesterolemia, unspecified; J45.909 Unspecified asthma, uncomplicated; M19.90 Unspecified osteoarthritis, unspecified site; E11.9 Type 2 diabetes mellitus without complications; E03.9 Hypothyroidism, unspecified; Z88.5 Allergy status to narcotic agent; Z88.0 Allergy status to penicillin; Z79.82 Long term (current) use of aspirin; Z79.84 Long term (current) use of oral hypoglycemic drugs; Z79.899 Other long term (current) drug therapy
CPT/HCPCS: 36415; 74019; 80053; 83690; 85025; 99282; 99284

== ENCOUNTER 2024-03-25 07:36 | Emergency (ER) | payer MEDICAID, MEDICARE ==
[2024-03-25] MEDS: Ketorolac 15 MG/ML SDV IM ONE (08:12)
[2024-03-25 08:56] LABS: INFLUENZA A NAA NEGATIVE (NEGATIVE); INFLUENZA B NAA NEGATIVE (NEGATIVE); RESPIRATORY SYNCYTIAL VIR NAA NEGATIVE (NEGATIVE)
[2024-03-25 08:58] LABS: CORONAVIRUS COVID-19 NAA POSITIVE (NEGATIVE)
[2024-03-25 09:52] VITALS: BP 115/56; PULSE 62
== END 2024-03-25 09:45 | disposition home or self-care (01) ==
LOC: LB.ED 07:36
DX: U07.1 COVID-19 (principal); I10 Essential (primary) hypertension; E78.00 Pure hypercholesterolemia, unspecified; J45.909 Unspecified asthma, uncomplicated; M19.90 Unspecified osteoarthritis, unspecified site; E11.9 Type 2 diabetes mellitus without complications; E03.9 Hypothyroidism, unspecified; E66.9 Obesity, unspecified; Z68.32 Body mass index [BMI] 32.0-32.9, adult; Z90.710 Acquired absence of both cervix and uterus; Z88.0 Allergy status to penicillin; Z88.8 Allergy status to other drugs, medicaments and biological substances; Z79.51 Long term (current) use of inhaled steroids; Z79.82 Long term (current) use of aspirin; Z79.890 Hormone replacement therapy; Z79.899 Other long term (current) drug therapy
CPT/HCPCS: 0241U; 93005; 96372; 99285; J1885; 93010; 99283

== ENCOUNTER 2024-03-27 11:44 | Emergency (ER) | payer MEDICARE ==
[2024-03-27] MEDS: Aspirin 81 MG Tab.Chew PO ONE (12:14)
[2024-03-27] MEDS: fentaNYL 100 MCG/2 ML SDV IVPUSH PRN (12:22)
[2024-03-27 12:32] LABS: BASOPHILS ABSOLUTE AUTO 0.03 K/uL (0.02-0.10); BASOPHILS PERCENT AUTO 0.4 % (0.0-0.5); EOSINOPHILS ABSOLUTE AUTO 0.12 K/uL (0.04-0.40); EOSINOPHILS PERCENT AUTO 1.6 % (1.0-5.0); HEMATOCRIT 40.1 % (37.0-47.0); HEMOGLOBIN 13.2 g/dL (11.5-16.5); LYMPHOCYTES ABSOLUTE AUTO 1.53 K/uL (1.50-4.00); LYMPHOCYTES PERCENT AUTO 20.8 % (20.0-40.0); MEAN CORPUSCULAR HEMOGLOBIN 29.3 pg (27.0-32.0); MEAN CORPUSCULAR HGB CONC 32.9 g/dL (31.0-35.0); MEAN CORPUSCULAR VOLUME 89 fL (76-96); MONOCYTES ABSOLUTE AUTO 0.75 K/uL (0.20-0.80); MONOCYTES PERCENT AUTO 10.2 % (3.0-10.0); NEUTROPHILS ABSOLUTE AUTO 4.94 K/uL (2.00-7.50); PLATELET COUNT,PLT 227 K/uL (150-500); RED CELL DISTRIBUTION WIDTH 12.6 % (11.0-16.0); WHITE BLOOD CELL COUNT,WBC 7.4 K/uL (4.0-11.0)
[2024-03-27 12:48] LABS: PTT,PARTIAL THROMBOPLSTIN TIME 24.8 SECONDS (24.4-33.2)
[2024-03-27 12:49] LABS: PROTHROMBIN TIME 10.9 sec (9.0-11.5)
[2024-03-27] MEDS: Albuterol/Ipratropium 3.0-0.5 MG/3 ML Neb Soln NEB PRN (12:51)
[2024-03-27 12:56] LABS: A/G RATIO 0.9 (0.8-2.0); ALANINE AMINOTRANSFERASE,ALT 25 U/L (12-78); ALBUMIN 3.6 g/dL (3.4-5.0); ALKALINE PHOSPHATASE 77 U/L (46-116); ANION GAP 13.8 mmol/L (5.0-15.0); ASPARTATE AMNIOTRANSFERASE,AST 26 U/L (15-37); BILIRUBIN TOTAL 0.7 mg/dL (0.0-1.0); BLOOD UREA NITROGEN,BUN 20 mg/dL (8-26); CARBON DIOXIDE,CO2 27.2 mmol/L (21.0-32.0); CHLORIDE,CL 105 mmol/L (98-107); CREATININE 0.91 mg/dL (0.55-1.02); EST CRCL DRUG DOSING (CG) 43.41 mL/min; ESTIMATED GFR 68 mL/min (>60); GLUCOSE RANDOM 178 mg/dL (74-100); PROTEIN TOTAL,TP 7.8 g/dL (6.4-8.2); SODIUM,NA 142 mmol/L (136-145)
[2024-03-27 12:59] LABS: TROPONIN I HIGH SENSITIVITY < 4.0 pg/ml (<=60.4)
[2024-03-27] MEDS: methylPREDNISolone Sodium Succinate 125 MG/2 ML SDV IVPUSH ONE (13:27)
[2024-03-27] MEDS ORDERED: traMADol 50 MG Tab ONE (14:30)
[2024-03-27] MEDS ORDERED: predniSONE 10 MG Tab ONE (14:30)
[2024-03-27 14:59] VITALS: BP 111/88; PULSE 75
== END 2024-03-27 14:43 | disposition home or self-care (01) ==
LOC: LB.ED 11:44
DX: R07.89 Other chest pain (principal); I10 Essential (primary) hypertension; E78.00 Pure hypercholesterolemia, unspecified; J45.909 Unspecified asthma, uncomplicated; M19.90 Unspecified osteoarthritis, unspecified site; E11.9 Type 2 diabetes mellitus without complications; E03.9 Hypothyroidism, unspecified; E66.9 Obesity, unspecified; Z68.32 Body mass index [BMI] 32.0-32.9, adult; Z90.710 Acquired absence of both cervix and uterus; Z88.0 Allergy status to penicillin; Z88.8 Allergy status to other drugs, medicaments and biological substances; Z79.51 Long term (current) use of inhaled steroids; Z79.82 Long term (current) use of aspirin; Z79.890 Hormone replacement therapy; Z79.899 Other long term (current) drug therapy
CPT/HCPCS: 36415; 71045; 80053; 84484; 85025; 85379; 85610; 85730; 93005; 94640; 96374; 96375; 99285; A9270; J2919; J3010; J7512; 93010; 99284; J7620

== ENCOUNTER 2024-03-29 10:10 | Emergency (ER) | payer MEDICARE ==
[2024-03-29 10:59] LABS: BASOPHILS ABSOLUTE AUTO 0.04 K/uL (0.02-0.10); BASOPHILS PERCENT AUTO 0.3 % (0.0-0.5); EOSINOPHILS ABSOLUTE AUTO 0.05 K/uL (0.04-0.40); EOSINOPHILS PERCENT AUTO 0.4 % (1.0-5.0); HEMATOCRIT 36.7 % (37.0-47.0); HEMOGLOBIN 12.2 g/dL (11.5-16.5); LYMPHOCYTES ABSOLUTE AUTO 2.13 K/uL (1.50-4.00); LYMPHOCYTES PERCENT AUTO 17.4 % (20.0-40.0); MEAN CORPUSCULAR HEMOGLOBIN 29.1 pg (27.0-32.0); MEAN CORPUSCULAR HGB CONC 33.2 g/dL (31.0-35.0); MEAN CORPUSCULAR VOLUME 88 fL (76-96); MEAN PLATELET VOLUME 9.9 fL (6.0-10.0); MONOCYTES ABSOLUTE AUTO 1.48 K/uL (0.20-0.80); MONOCYTES PERCENT AUTO 12.1 % (3.0-10.0); NEUTROPHILS ABSOLUTE AUTO 8.51 K/uL (2.00-7.50); NEUTROPHILS PERCENT AUTO 69.8 % (45.0-70.0); PLATELET COUNT,PLT 259 K/uL (150-500); RED BLOOD CELL COUNT 4.19 M/uL (3.80-5.80); RED CELL DISTRIBUTION WIDTH 12.3 % (11.0-16.0); WHITE BLOOD CELL COUNT,WBC 12.2 K/uL (4.0-11.0)
[2024-03-29] MEDS: Benzonatate 100 MG Cap PO ONE (11:03)
[2024-03-29 11:35] LABS: A/G RATIO 0.9 (0.8-2.0); ALBUMIN 3.7 g/dL (3.4-5.0); ANION GAP 15.9 mmol/L (5.0-15.0); BILIRUBIN TOTAL 0.5 mg/dL (0.0-1.0); CARBON DIOXIDE,CO2 27.9 mmol/L (21.0-32.0); CREATININE 0.95 mg/dL (0.55-1.02); EST CRCL DRUG DOSING (CG) 41.58 mL/min; POTASSIUM,K 3.8 mmol/L (3.5-5.1); PROTEIN TOTAL,TP 7.7 g/dL (6.4-8.2)
[2024-03-29] MEDS ORDERED: Sodium Chloride 0.9% 50 ML SDV FLUSH ONE (11:38)
[2024-03-29] MEDS ORDERED: Iopamidol 755 Mg/ML 100 ML Bottle IV SCH (11:45)
[2024-03-29] MEDS: Albuterol/Ipratropium 3.0-0.5 MG/3 ML Neb Soln NEB ONE (12:25)
[2024-03-29] MEDS: Budesonide 0.5 MG/2 ML Neb Susp NEB ONE (12:34)
[2024-03-29 13:29] VITALS: BP 134/72; PULSE 81
== END 2024-03-29 13:14 | disposition home or self-care (01) ==
LOC: LB.ED 10:10
DX: U07.1 COVID-19 (principal); J40 Bronchitis, not specified as acute or chronic; I10 Essential (primary) hypertension; E78.00 Pure hypercholesterolemia, unspecified; M19.90 Unspecified osteoarthritis, unspecified site; E11.9 Type 2 diabetes mellitus without complications; E03.9 Hypothyroidism, unspecified; E66.9 Obesity, unspecified; Z68.33 Body mass index [BMI] 33.0-33.9, adult; Z90.710 Acquired absence of both cervix and uterus; Z88.0 Allergy status to penicillin; Z88.8 Allergy status to other drugs, medicaments and biological substances; Z79.51 Long term (current) use of inhaled steroids; Z79.82 Long term (current) use of aspirin; Z79.52 Long term (current) use of systemic steroids; Z79.890 Hormone replacement therapy; Z79.899 Other long term (current) drug therapy
CPT/HCPCS: 36415; 71260; 80053; 83605; 83735; 85025; 85379; 94640; 99284; 99285; A9270-GY; J7620

== ENCOUNTER 2024-08-13 01:02 | Emergency (ER) | payer MEDICARE ==
[2024-08-13] MEDS: Cyclobenzaprine 5 MG Tab PO SCH (01:40)
[2024-08-13] MEDS: Ketorolac 15 MG/ML SDV IM ONE (01:40)
[2024-08-13] MEDS ORDERED: traMADol 50 MG Tab ONE (02:00)
[2024-08-13 02:33] VITALS: BP 124/67; PULSE 66
[2024-08-15] MEDS: Cyclobenzaprine 5 MG Tab PO ONE (09:41)
== END 2024-08-13 02:15 | disposition home or self-care (01) ==
LOC: LB.ED 01:02
DX: S70.02XA Contusion of left hip, initial encounter (principal); I10 Essential (primary) hypertension; J45.909 Unspecified asthma, uncomplicated; E11.9 Type 2 diabetes mellitus without complications; E03.9 Hypothyroidism, unspecified; E78.00 Pure hypercholesterolemia, unspecified; Z88.0 Allergy status to penicillin; Z88.8 Allergy status to other drugs, medicaments and biological substances; Z79.82 Long term (current) use of aspirin; Z79.51 Long term (current) use of inhaled steroids; Z79.899 Other long term (current) drug therapy; Z79.890 Hormone replacement therapy; W18.39XA Other fall on same level, initial encounter; Y93.89 Activity, other specified
CPT/HCPCS: 96372; 99283; A9270-GY; J1885